=== PATIENT | male | born 1970 | race Caucasian/White ===

== ENCOUNTER 2016-09-06 17:59 | Emergency (ER) | payer SELFPAY ==
[2016-09-06] MEDS ORDERED: HYDROmorphone 2 MG/1 ML IVP ONE (18:18)
[2016-09-06] MEDS ORDERED: Sodium Chloride 0.9% 1,000 ML PRIMARY IV ONE (18:18)
[2016-09-06] MEDS ORDERED: NORMAL SALINE 10 ML SYRINGE FLUSH IVP PRN (18:18)
[2016-09-06] MEDS ORDERED: ONDANSETRON 4 MG/2 ML VIAL IVP ONE (18:18)
[2016-09-06] MEDS ORDERED: Famotidine Inj 20 MG in Normal Saline Flush 10 ML IVP ONE (18:18)
[2016-09-06 18:23] LABS: BASOPHILS # (AUTO) 0.16 10*3/UL; BASOPHILS % (AUTO) 1.4 % (0-1); EOSINOPHILS # (AUTO) 0.33 10*3/UL; EOSINOPHILS % (AUTO) 2.9 % (0-8); HEMATOCRIT 43.1 % (42.0-52.0); HEMOGLOBIN 15.3 g/dL (14.0-18.0); LYMPHOCYTES # (AUTO) 3.34 10*3/uL; MEAN CORPUSCULAR HGB CONC 35.5 g/dL (33-37); MEAN CORPUSCULAR VOLUME 87.4 FL (80-90); MEAN PLATELET VOLUME 10.8 FL (7.4-12.2); MONOCYTES # (AUTO) 1.05 10*3/UL (0.3-0.8); MONOCYTES % (AUTO) 9.2 % (5-15); NEUTROPHILS # (AUTO) 6.46 10*3/UL; NEUTROPHILS % (AUTO) 56.8 % (50-80); RED BLOOD COUNT 4.93 10^6/uL (4.70-6.10)
[2016-09-06 18:25] LABS: PLATELET MORPHOLOGY COMMENT NORMAL MORPHOLOGY (NORM); RBC MORPHOLOGY COMMENT NORMAL MORPHOLOGY (NORM); WBC MORPHOLOGY COMMENT NORMAL MORPHOLOGY (NORM)
[2016-09-06 18:30] LABS: BLOOD UREA NITROGEN 22 mg/dL (7-22); EST GLOMERULAR FILTRATION > 60 (>60 ml/min/1.73m(2)); LIPASE 323 IU/L (23-300); SERUM ALBUMIN 4.8 g/dL (3.5-4.8)
[2016-09-06 19:31] LABS: BILIRUBIN,URINE NEGATIVE (NEG); CLARITY,URINE CLEAR (CLEAR); COLOR,URINE YELLOW; GLUCOSE, URINE (UA) NEGATIVE (NEG); NITRATE,URINE NEGATIVE (NEG); OCCULT BLOOD,URINE NEGATIVE (NEG); PROTEIN,URINE NEGATIVE (NEG); UROBILINOGEN,URINE 0.2 EU/dL (0.2)
[2016-09-06 19:32] LABS: URINE SAMPLE TYPE CLEAN CATCH URINE
--- NOTE | 2016-09-06 19:58 | DI ---
CLINICAL HISTORY: Right upper quadrant pain. PREVIOUS EXAM: None available. FINDINGS/TECHNIQUE: Multiple grayscale and color Doppler sonographic images are obtained through the abdomen. There is diffuse fatty infiltration of the liver. The gallbladder is unremarkable. The gallbladder wall measures 2 mm. Is not well seen. There is no evidence of ascites IMPRESSION: 1. Diffuse fatty infiltration of the liver otherwise unremarkable. NOTE: The interpreting Radiologist was not present at the time of ultrasound interrogation.
[2016-09-06 20:03] VITALS: TEMP 97.9
--- NOTE | 2016-09-06 20:39 | DI ---
HISTORY: Right upper quadrant pain. TECHNIQUE: Contiguous axial enhanced images of the abdomen and pelvis were obtained from the lung ba ses through the ischial tuberosities. The images were then submitted for interpretation. FINDINGS: The ultrasound was not available for comparison. The limited sections of the lung bases demonstrate an ill-defined pleural-based density in the left l ower lung measuring approximately 1.4 cm. Mass not excluded. Bibasilar opacities suggest atelectasi s. There is cardiomegaly. The liver, spleen, pancreas, gallbladder, both kidneys, and both adrenal glands demonstrate no acute findings. The aorta and IVC demonstrate no acute abnormality. Stomach is collapsed and partially thickened. The GE junction is prominent. Consider endoscopy. There is moderate to severe constipation. There is segment of thickening of the redundant sigmoid co shannon. There is no obstruction. There is no free air or free fluid. The small bowel loops are not di lated. The appendix is felt to be visualized, and appears grossly unremarkable. Within the pelvis, the urinary bladder is partially collapsed. The prostate gland is prominent. The re are bilateral small inguinal hernias containing only fat. The visualized osseous structures demonstrate no destructive abnormality. There is diffuse degenerat minnie change at L5-S1. There are calcifications, versus surgical sutures in right lower quadrant. Recommend clinical correl ation. IMPRESSION: 1. The limited sections of the lung bases demonstrate an ill-defined pleural-based density in the lef t lower lung measuring approximately 1.4 cm. Mass not excluded. Bibasilar opacities suggest atelect asis. There is cardiomegaly. 2. There is moderate to severe constipation. There is segment of thickening of the redundant sigmoid colon. There is no obstruction. There is no free air or free fluid. The small bowel loops are not dilated. The appendix is felt to be visualized, and appears grossly unremarkable.
[2016-09-06 21:15] VITALS: RESP 18
--- NOTE | 2016-09-07 05:27 | PDOC ---
Abdomen/Flank HPI - General Chief Complaint: Abdomen Pain Stated Complaint: RUQ PAIN Date Seen by Provider: 09/06/16 Time Seen by Provider: 18:05 Source: POSITIVE: Patient Exam Limitations: POSITIVE: No limitations Nurse's Notes Reviewed & Considered: Yes - History of Present Illness Initial Comments: The patient is a 45-year-old male. He states that for the past 24 hours, approximately, he has had right upper quadrant discomfort/pain with some radiation into his right shoulder. No known fevers, although he states that he had some "shaking" last night. Appetite is good and he states he last ate around noon at which time he had macaroni and cheese and hotdogs. Patient has a history of type II diabetes mellitus for which he takes bemfibrozil and metformin. He's had an esophagogastroduodenoscopy in the past. No abdominal surgery. No nausea, vomiting, diarrhea, melena, hematochezia, hematemesis, dysuria or hematuria. Body Location Affected: REPORTS: Abdomen Timing: REPORTS: Constant Duration: <24 hours (Approximately 24 hours) Severity: Moderate Quality: REPORTS: "Pain", Sharpness Abdominal Pain Onset Location: REPORTS: RUQ Abdominal Pain Radiation: REPORTS: Shoulder (Right subscapular area) Context: REPORTS: None Modifying Factors: improves with: Nothing Associated Symptoms: REPORTS: Denies symptoms Similar Symptoms Previously: No Recent Care Received: REPORTS: Denies Any Prior Injuries Related to Current Complaint?: No - Patient Home Medications Home Medications: Home Medications Allopurinol 09/06/16 Gemfibrozil 600 mg PO BID 09/06/16 Lisinopril 09/06/16 Metformin HCl 500 mg PO BID 09/06/16 - Patient Allergies Allergies/Adverse Reactions: Allergies Allergy/AdvReac Type Severity Reaction Status Date / Time No Known Allergies Allergy Unverified 09/06/16 18:06 Past Medical History - heen HEENT History: Denies History Cardiovascular History: Hypertension, Hyperlipidemia Respiratory History: Denies History Gastrointestinal History: Denies History Genitourinary History: Denies History Endocrine History: Type 2 Diabetes (diet) Musculoskeletal History: Gout Neurological History: Denies History Blood Disorders: Denies History Psychiatric History: Denies History History of Sexually Transmitted Diseases: No Male Reproductive History: Infertility Cancer History: Denies History In Past Year Been Physically Harmed or Verbally Threatened: No History of MDRO: Yes Type of MDRO: MRSA Tobacco Use: Never Smoker Alcohol Use: None Substance Use Type: None Previous Surgical History: No Significant Family History: No pertinent family hx Past Medical History Reviewed: Reviewed - No Changes ROS - Limitations ROS Limitations: No Limitations Constitution: REPORTS: Denies Symptoms Cardiovascular: REPORTS: Denies Cardiac Symptoms Respiratory: REPORTS: Denies Resp Symptoms Neurological: REPORTS: Denies Neuro Symptoms Gastrointestinal: REPORTS: Abdominal Pain (Right upper quadrant area) Endocrine: REPORTS: Denies Symptoms Musculoskeletal: REPORTS: Denies MS Symptoms Genitourinary: REPORTS: Denies Symptoms Eyes: REPORTS: Denies Symptoms ENT: REPORTS: Denies Symptoms Skin: REPORTS: Denies Skin Symptoms Lympathic: REPORTS: Denies Lympathic Symptoms Immunologic: POSITIVE: Denies Symptoms Psychiatric: POSITIVE: Denies Psych Symptoms Abdominal/Flank Pain PE - General Appearance General Appearance: POSITIVE: Alert, Cooperative, No Acute Distress, No Evidence of Trauma - HEENT HEENT: POSITIVE: Head Inspection Nml, Eyes Inspection Nml, Ears Inspection Nml, Nose Inspection Nml, Oral/Dental Inspect. Nml, Pharynx Inspect. Nml, PERRL, EOMI - Neck Neck: POSITIVE: Normal Inspection, No Apparent Injury - Respiratory Respiratory: POSITIVE: No Respiratory Distress, Breath Sounds Normal, Chest Non- Tender - Cardiovascular Cardiovascular: POSITIVE: Regular Rate and Rhythm, Heart Sounds Normal, Equal Pulses, Strong Pulses Peripheral Pulses: Radial (R): 2+, Radial (L): 2+ - Chest Chest: POSITIVE: Non Tender - Abdomen Abdomen: Soft: (All Quadrants), Normal Bowel Sounds: (All Quadrants), Denies Tenderness: (LLQ), (RLQ), (LUQ), No Splenomegaly: (All Quadrants), No Hepatomegaly: (All Quadrants), No Guarding: (All Quadrants), No Rebound: (All Quadrants), No Palpable Pulse: (All Quadrants), No Palpabale Mass: (All Quadrants), No Distention: (All Quadrants), No Rigidity: (All Quadrants), Tenderness Noted: (RUQ) Additional Abdominal Details: Abdominal examination shows bowel sounds to be active. Patient does have some tenderness on direct palpation right upper quadrant, without masses, organomegaly or rebound. - Back Back: POSITIVE: Normal Inspection. NEGATIVE: CVA Tenderness (R), CVA Tenderness (L) - Skin Skin: POSITIVE: Intact, Normal For Race, Warm, Dry, No Rash - Extremities Extremity: Non-Tender: (All Extremities), Normal ROM: (All Extremities), Normal Inspection: (All Extremities) - Neurological Neurological: POSITIVE: Oriented X3, operating room technologist Normal As Tested, Motor Normal, Sensation Normal, 5, 6 - Psychological Psychiatric: POSITIVE: Affect Appropriate, Mood Appropriate Images - Complete Complete: 1 - Area of described discomfort and discomfort on palpation Abdomen Progress - Results Reviewed by me Xrays/CTs/US Reviewed by me: Yes Discussed with Radiologist: Yes Radiology Findings: Right upper quadrant ultrasound negative according to radiologist. CT scan abdomen and pelvis with IV contrast also read as essentially normal by radiologist. Lab Results Reviewed: Yes Lab Results:: Laboratory Results 09/06/16 09/06/16 Range/Units 18:19 19:31 WBC 11.39 H (4.8-10.8) 10^3/uL RBC 4.93 (4.70-6.10) 10^6/uL Hgb 15.3 (14.0-18.0) g/dL Hct 43.1 (42.0-52.0) % MCV 87.4 (80-90) FL MCH 31.0 (27-31) PG MCHC 35.5 (33-37) g/dL RDW Std Deviation 40.4 (39-50) fL RDW Coeff of [place] 13.1 (11.5-14.5) % Plt Count 335 (140-350) 10*3/uL MPV 10.8 (7.4-12.2) FL Immature Gran % (Auto) 0.4 (0-5) % Neut % (Auto) 56.8 (50-80) % Lymph % (Auto) 29.3 (10-50) % [place] % (Auto) 9.2 (5-15) % Eos % (Auto) 2.9 (0-8) % Baso % (Auto) 1.4 H (0-1) % Immature Gran # (Auto) 0.05 10*3/UL Neut # (Auto) 6.46 10*3/UL Lymph # (Auto) 3.34 10*3/uL [place] # (Auto) 1.05 H (0.3-0.8) 10*3/UL Eos # (Auto) 0.33 10*3/UL Baso # (Auto) 0.16 10*3/UL WBC Morphology Comment Normal morphology (NORM) Plt Morphology Comment Normal morphology (NORM) RBC Morph Comment Normal morphology (NORM) Sodium 138 (135-145) meq/L Potassium 3.9 (3.8-5.2) meq/L Chloride 100 (98-112) meq/L Carbon Dioxide 23 (23-33) meq/L Anion Gap 15 (5-20) BUN 22 (7-22) mg/dL Creatinine 0.8 (0.70-1.50) mg/dL Estimated GFR > 60 (>60 ml/min/1.73m(2)) BUN/Creatinine Ratio 27.50 H (6-20) Glucose 177 H (78-110) mg/dL Calculated Osmolality 292.0 (267-292) mOsm/kg Calcium 10.0 (8.7-10.7) mg/dL Total Bilirubin 0.5 (0.3-1.2) mg/dL AST 48 (21-57) IU/L ALT 111 H (21-72) IU/L Alkaline Phosphatase 75 (38-126) IU/L Total Protein 8.4 H (6.1-8.0) g/dL Albumin 4.8 (3.5-4.8) g/dL Globulin 3.6 (2.50-4.10) g/dL Albumin/Globulin Ratio 1.30 (1.3-2.0) mg/g Amylase 67 (30-110) U/L Lipase 323 H (23-300) IU/L Ur Collection Type Clean catch urine Urine Color Yellow Urine Clarity Clear (CLEAR) Urine pH 5.0 (5.0-8.5) Ur Specific [place] 1.025 (1.005-1.030) Urine Protein Negative (NEG) mg/dl Urine Glucose (UA) Negative (NEG) mg/dL Urine Ketones Trace (NEG) Urine Occult Blood Negative (NEG) Urine Nitrate Negative (NEG) Urine Bilirubin Negative (NEG) Urine Urobilinogen 0.2 (0.2) EU/dL Ur Leukocyte Esterase Negative (NEG) Ur Culture Indicated? Culture not set - Patient's Progress Pain Medication Addressed: POSITIVE: Yes (Patient given hydromorphone, 1 mg IV) School/Work Release Addressed: POSITIVE: Not Applicable Re-examine Time: 20:50 Re-Examine Comment: Patient feeling better on discharge; minimal discomfort at this time Status: POSITIVE: Improved, Re-Examined - Consult Counseled: POSITIVE: Patient, Family, RE: Lab Results, RE: Radiology Results, RE : DX, RE: Need for F/U Patient Care Time - Estimated PCT Patient Care Time (In Minutes): 50 Vital Signs - VS Reviewed Vital Signs Reviewed: Yes Discharge Clinical Impression: Abdominal pain Discharge Disposition: Discharged to Home Condition: Stable Patient Instructions Given at Discharge: Acute Abdominal Pain (ED) Additional Instructions: Your abdominal ultrasound and CT scans are read by the radiologist as normal. Blood and urine tests are normal. I'm not completely sure what the source of your abdominal pain is, but I see no serious problems. Try a clear liquid diet for 24 hours. Please follow-up with your primary care provider and arrange to have a HIDA scan done; this is a test which will sometimes show gallstones which cannot be detected on ultrasound or CT scan. Avoid fatty foods. Return here anytime if condition worsens in anyway whatsoever, or as necessary. Follow Up With: MARY ARTHUR [Primary Care Provider] - (Instructions as above. Follow-up with your physician. Return here anytime if condition worsens in any way whatsoever.)
== END 2016-09-06 21:08 | disposition home or self-care (01) ==
LOC: ER 17:59
DX: R10.11 Right upper quadrant pain (principal); K59.00 Constipation, unspecified; M25.511 Pain in right shoulder; E11.9 Type 2 diabetes mellitus without complications; I10 Essential (primary) hypertension
CPT/HCPCS: 74177; 76705; 80053; 81003; 82150; 83690; 85025; 96361; 96374; 96375; 99283; 99284; J1170; J2405; J7030